=== PATIENT | female | born 1975 | race Caucasian/White ===

== ENCOUNTER 2024-05-28 06:24 | Day surgery (SDC) | payer BC, SELFPAY | END 2024-05-28 10:20 | disposition home or self-care (01) | LOC: GI 06:24 | PROVIDERS: ATTENDING PHYSICIAN Internal Medicine Gastroenterology | DX: Z12.11 Encounter for screening for malignant neoplasm of colon (principal); K62.5 Hemorrhage of anus and rectum; K64.0 First degree hemorrhoids; R10.9 Unspecified abdominal pain; K52.9 Noninfective gastroenteritis and colitis, unspecified | CPT/HCPCS: 45380; 88305 ==

== ENCOUNTER → 2024-06-11 07:09 | Outpatient (REF) | payer BC, SELFPAY | LOC: RAD 07:09 | PROVIDERS: ATTENDING PHYSICIAN Internal Medicine Gastroenterology; FAMILY PHYSICIAN Internal Medicine | DX: K63.9 Disease of intestine, unspecified (principal) | CPT/HCPCS: 74177; Q9967 ==